=== PATIENT | male | born 1955 | race Two or more races ===

== ENCOUNTER → 2018-06-11 | Outpatient (REF) | payer OTHER | LOC: M LABDRWCV 16:14 → M LABDRAWC 16:14 | DX: E83.52 Hypercalcemia (principal) ==

== ENCOUNTER → 2025-01-20 | Outpatient (REF) | payer MEDICARE ==
[2025-01-20 18:11] LABS: BASO # 0.1 10^3/uL (0.0-0.2); BASO % 0.8 % (0.0-1.0); EOS # 0.2 10^3/uL (0.0-0.5); EOS % 2.6 % (0.0-3.0); LYMPH # 1.0 10^3/uL (1.5-5.0); LYMPH % 12.9 % (24.0-44.0); MONO # 0.8 10^3/uL (0.0-0.8); MONO % 9.9 % (2.0-8.0); NEUTROPHILS # 5.7 10^3/uL (1.5-8.5); NEUTROPHILS % 73.5 % (36.0-66.0); PLATELET COUNT, AUTOMATED 233 10^3/uL (150-450)
[2025-01-20 18:15] LABS: ALT/SGPT 27 U/L (7.0-40); AST/SGOT 21 U/L (<34); CALCIUM LEVEL 10.2 MG/DL (8.3-10.6); CARBON DIOXIDE LEVEL 29 MMOL/L (20-31); CHLORIDE LEVEL 104 MMOL/L (98-107); CHOLESTEROL LEVEL 210 MG/DL (<200); CHOLESTEROL RISK RATIO 4.12 (<5); CREATININE FOR GFR 0.89 MG/DL (0.70-1.30); GLOMERULAR FILTRATION RATE > 90.0 (>49); LDL CHOLESTEROL 137.5 MG/DL (<100); MAGNESIUM LEVEL 1.9 MG/DL (1.8-2.4); NON-HDL-C 159.1 MG/DL; POTASSIUM SERUM 4.5 MMOL/L (3.5-5.1); SODIUM LEVEL 141 MMOL/L (136-145); TRIGLYCERIDES LEVEL 108 MG/DL (<150)
[2025-01-20 18:16] LABS: FREE T4 1.48 NG/DL (0.89-1.76)
== END ==
LOC: M LABDRWCV 17:17
PROVIDERS: ATTEND Registered Nurse
DX: R00.2 Palpitations (principal); E78.2 Mixed hyperlipidemia

== ENCOUNTER → 2025-01-24 | Outpatient (CLI) | payer MEDICARE | LOC: M EKG 11:18 | PROVIDERS: ATTEND Registered Nurse | DX: R00.2 Palpitations (principal) ==

== ENCOUNTER → 2025-02-15 | Outpatient (CLI) | payer MEDICARE | LOC: M CARPUL 09:53 | PROVIDERS: ATTEND Registered Nurse | DX: R06.02 Shortness of breath (principal); R94.31 Abnormal electrocardiogram [ECG] [EKG] ==

== ENCOUNTER → 2025-03-28 | Outpatient (CLI) | payer MEDICARE | LOC: M CARPUL 11:11 | PROVIDERS: ATTEND Registered Nurse | DX: R94.31 Abnormal electrocardiogram [ECG] [EKG] (principal); R06.02 Shortness of breath ==

== ENCOUNTER → 2025-04-07 | Outpatient (REF) | payer MEDICARE ==
[2025-04-07 18:37] LABS: ALT/SGPT 24.0 U/L (7.0-40); AST/SGOT 19.0 U/L (<34); CHOLESTEROL LEVEL 179.0 MG/DL (<200); CHOLESTEROL RISK RATIO 3.8 (<5); LDL CHOLESTEROL 115.0 MG/DL (<100); NON-HDL-C 132.0 MG/DL; TRIGLYCERIDES LEVEL 85.0 MG/DL (<150)
== END ==
LOC: M LABDRWCV 17:27
PROVIDERS: ATTEND Registered Nurse
DX: E78.2 Mixed hyperlipidemia (principal)

== ENCOUNTER → 2025-04-07 | Outpatient (CLI) | payer MEDICARE | LOC: M SLEEP HO 12:01 | PROVIDERS: ATTEND Nurse Practitioner Family | DX: G47.33 Obstructive sleep apnea (adult) (pediatric) (principal) ==